=== PATIENT | male | born 1960 | race Caucasian/White ===

== ENCOUNTER 2024-06-24 06:40 | Outpatient (OUT) | payer OTHER, SELFPAY ==
[2024-06-24 07:04] LABS: Basophils Absolute Auto 0.1 10^3/uL (0.0-0.1); Eosinophils Absolute Auto 0.4 10^3/uL (0.0-0.7); Eosinophils Percent Auto 5.6 % (0.9-7.0); Hemoglobin 15.9 g/dL (14.0-18.0); Immature Granulocytes Abs Auto 0.03 10^3/uL (0.00-0.03); Immature Granulocytes Pct Auto 0.4 % (0.0-0.5); Lymphocytes Absolute Auto 1.6 10^3/uL (1.2-3.8); Mean Corpuscular HGB Conc 33.8 g/dL (29.9-35.2); Mean Corpuscular Hemoglobin 30.6 pg (25.9-34.0); Mean Corpuscular Volume 90.6 fL (80.0-94.0); Mean Platelet Volume 10.1 fL (9.5-13.5); Monocytes Absolute Auto 0.5 10^3/uL (0.3-0.8); Monocytes Percent Auto 7.4 % (1.7-12.0); Neutrophils Absolute Auto 4.2 10^3/uL (1.4-6.5); Neutrophils Percent Auto 62.6 % (43.0-75.0); Platelet Count 162 10^3/uL (150-450); Red Blood Count 5.19 10^6/uL (4.70-6.10); Red Cell Distribution Width 12.1 % (11.0-15.0); White Blood Count 6.7 10^3/uL (4.0-11.0)
[2024-06-24 07:14] LABS: Estimated Average Glucose 91 mg/dL; Glycohemoglobin A1C 4.8 % (4.5-6.2)
[2024-06-24 07:32] LABS: Alanine Aminotransferase 23 U/L (16-63); Albumin Globulin Ratio 1.2; Albumin Level 3.6 g/dL (3.4-5.0); Alkaline Phosphatase 105 U/L (46-116); Anion Gap 12.1; Aspartate Amino Transferase 14 U/L (15-37); BUN Creatinine Ratio 11.3; Bilirubin Total 0.6 mg/dL (0.2-1.0); Calcium 8.8 mg/dL (8.5-10.1); Carbon Dioxide 27.7 mmol/L (21.0-32.0); Chloride 105 mmol/L (98-107); Chol HDL Ratio 4.5; Cholesterol 180 mg/dL (<=200); Estimated GFR (African America >60 (>=60); Estimated GFR (Non-African Ame 54 (>=60); Free T3 2.77 pg/mL (2.18-3.98); Glucose 96 mg/dL (74-106); HDL Cholesterol 40 mg/dL (40-60); LDL Cholesterol Calculated 117.4 mg/dL; Potassium 3.8 mmol/L (3.5-5.1); Sodium 141 mmol/L (136-145); Thyroid Stimulating Hormone 1.291 uIU/mL (0.358-3.740); Total Protein 6.6 g/dL (6.4-8.2); Triglycerides 113 mg/dL (<=150); Uric Acid 7.3 mg/dL (3.5-7.2); VLDL CHOLESTEROL 22.6 mg/dL
[2024-06-24 09:57] LABS: Prostate Specific Antigen Scrn 1.11 ng/mL (<=4.00)
== END 2024-06-24 06:41 | disposition home or self-care (01) ==
LOC: LAB 06:47
PROVIDERS: PCP Family Medicine; Visit Provider Family Medicine
DX: E78.5 Hyperlipidemia, unspecified (principal); I10 Essential (primary) hypertension; K21.9 Gastro-esophageal reflux disease without esophagitis; M10.9 Gout, unspecified; N40.0 Benign prostatic hyperplasia without lower urinary tract symptoms; Z12.5 Encounter for screening for malignant neoplasm of prostate; R53.83 Other fatigue; R73.09 Other abnormal glucose
CPT/HCPCS: 36415; 80053; 80061; 83036; 84436; 84443; 84481; 84550; 85025; G0103

== ENCOUNTER 2024-07-01 06:42 | Outpatient (OUT) | payer OTHER, MEDICARE, SELFPAY ==
--- OUTSIDE RECORDS SUMMARY | 2024-07-01 06:45 | XMS_ITS | CCD ---
Author Organization [facility] Care Team Providers Care Fabric Worker Supervisor Name Role Phone Landen Malik Admitting Unavailable Landen Malik Attending Unavailable Landen Malik Referring Unavailable Rufus Erazo~[id number] UNKNOWN Primary Care Unavailable DR RUFUS ERAZO Admitting Unavailable DR RUFUS ERAZO Attending Unavailable DR RUFUS ERAZO Consulting Unavailable Allergies Allergy Classification Reported Allergen(s) Allergy Type Date of Onset Reaction(s) Facility (1 source) No Known Medication Allergies; Translations: [No Known Medication Allergies] Propensity to adverse reactions (disorder) [facility] Repository Problems Problem Classification Problem Date Documented Da te Episodic/Chronic Other screening for suspected conditions (not mental disorders or infectious disease) (1 source) Encounter for screening for malignant neoplasm of prostate; Translations: [ENC SCREEN MALIG NEOPLASM PROSTATE] Onset: 08-16-2021 Episodic Results Test Name Value Interpretation Reference Range Facility INSULINon 08-11-2021 Insulin 7.9 uIU/mL Normal 2.6-24.9 [facility] Comment on above: Performed By: #### U AMIC #### [facility] [address] [address] [address] Dina Prescott CBC AUTO DIFFon 08-10-2021 BASO # 0.0 103/ul Normal 0.0-0.1 [facility] Comment on above: Performed By: #### C BC #### [facility] [address] [address] [address] Dina Prescott Basophils/100 WBC (Bld) 0.4 % Normal 0.2-2.0 [facility] Comment on above: Performed By: #### C BC #### [facility] [address] [address] [address] Dina Prescott EO # 0.3 103/ul Normal 0.0-0.7 [facility] Comment on above: Performed By: #### C BC #### [facility] [address] [place] [address] Dr. Dina Prescott Eosinophils/100 WBC (Bld) 2.8 % Normal 0.9-7.0 [facility] Comment on above: Performed By: #### C BC #### [facility] [address] [place] [address] Dr. Dina Prescott Erythrocyte distribution width (RBC) [Ratio] 12.1 % Normal 11.0-15.0 [facility] Comment on above: Performed By: #### C BC #### [facility] [address] [place] [address] Dr. Dina Prescott Hematocrit (Bld) [Volume fraction] 49.7 % Normal 42.0-54.0 [facility] Comment on above: Performed By: #### C BC #### [facility] [address] [place] [address] Dr. Dina Prescott Hemoglobin (Bld) [Mass/Vol] 16.8 g/dL Normal 14.0-18.0 [facility] Comment on above: Performed By: #### C BC #### [facility] [address] [place] [address] Dr. Dina Prescott IG # 0.04 10e3/ul Critically high 0.00-0.03 [facility] Comment on above: Performed By: #### C BC #### [facility] [address] [place] [address] Dr. Dina Prescott IG % 0.4 % Normal 0.0-0.5 [facility] Comment on above: Performed By: #### C BC #### [facility] [address] [place] [address] Dr. Dina Prescott LYMPH # 1.8 103/ul Normal 1.2-3.8 [facility] Comment on above: Performed By: #### C BC #### [facility] [address] [place] [address] Dr. Dina Prescott Lymphocytes/100 WBC (Bld) 20.1 % Critically low 20.5-60.0 [facility] Comment on above: Performed By: #### C BC #### [facility] [address] [place] [address] Dr. Dina Prescott MANUAL DIFF REQ NO Normal [facility] Comment on above: Performed By: #### C BC #### [facility] [address] [place] [address] Dr. Dina Prescott MCH (RBC) [Entitic mass] 30.4 pg Normal 25.9-34.0 [facility] Comment on above: Performed By: #### C BC #### [facility] [address] [place] [address] Dr. Dina Prescott MCHC (RBC) [Mass/Vol] 33.8 g/dL Normal 29.9-35.2 [facility] Comment on above: Performed By: #### C BC #### [facility] [address] [place] [address] Dr. Dina Prescott MCV (RBC) [Entitic vol] 89.9 fL Normal 80.0-94.0 [facility] Comment on above: Performed By: #### C BC #### [facility] [address] [place] [address] Dr. Dian Prescott MONO # 0.5 103/ul Normal 0.3-0.8 [facility] Comment on above: Performed By: #### C BC #### [facility] [address] [place] [address] Dr. Dina Prescott Monocytes/100 WBC (Bld) 5.9 % Normal 1.7-12.0 [facility] Comment on above: Performed By: #### C BC #### [facility] [address] [place] [address] Dr. Dina Prescott NEUT # 6.4 103/ul Normal 1.4-6.5 [facility] Comment on above: Performed By: #### C BC #### [facility] [address] [place] [address] Dr. Dina Prescott Neutrophils/100 WBC (Bld) 70.4 % Normal 43.0-75.0 [facility] Comment on above: Performed By: #### C BC #### [facility] [address] [place] [address] Dr. Dina Prescott Platelet mean volume (Bld) [Entitic vol] 10.0 fL Normal 9.5-13.5 [facility] Comment on above: Performed By: #### C BC #### [facility] [address] [place] [address] Dr. Dina Prescott PLT 225 103/ul Normal 150-450 [facility] Comment on above: Performed By: #### C BC #### [facility] [address] [place] [address] Dr. Dina Prescott RBC 5.53 106/ul Normal 4.70-6.10 [facility] Comment on above: Performed By: #### C BC #### [facility] [address] [place] [address] Dr. Dina Prescott WBC 9.1 103/ul Normal 4.0-11.0 [facility] Comment on above: Performed By: #### C BC #### [facility] [address] [place] [address] Dr. Dina Prescott CULTURE URINEon 08-10-2021 CULTURE URINE Culture Observations : NO GROWTH. Normal [facility] Comment on above: Performed By: #### U RCX #### [facility] [address] [place] [address] Dr. Dina Prescott FREE THYROXINE INDEX T7on FTI 2.35 Normal [facility] Comment on above: Performed By: #### T SH, T7, CMP, URIC, LIPID #### [facility] [address] [place] [address] Dr. Dina Prescott T3U 35.0 % Normal 23.5-40.5 [facility] Comment on above: Performed By: #### T SH, T7, CMP, URIC, LIPID #### [facility] [address] [place] [address] Dr. Dina Prescott T4 [Mass/Vol] 6.70 ug/dL Normal 5.53-11.00 [facility] Comment on above: Performed By: #### T SH, T7, CMP, URIC, LIPID #### [facility] [address] [address] [address] Dina Prescott GLYCOHEMOGLOBIN A1Con 2020 ADA RECOMMENDATION ADA THERAPEUTIC TARG ET 6.0 - 7.0 ACTION SUGGESTED > 7.0 Normal [facility] Comment on above: Performed By: #### A 1C #### [facility] [address] [address] [address] Dina Prescott Glucose [Mass/Vol] 88 mg/dL Normal 74-106 [facility] Comment on above: Performed By: #### A 1C #### [facility] [address] [place] [address] Dr. Dina Prescott Performed By: #### T SH, T7, CMP, URIC, LIPID #### [facility] [address] [place] [address] Dr. Dina Prescott HbA1c (Bld) [Mass fraction] 4.7 % Normal <=6.0 [facility] Comment on above: Performed By: #### A 1C #### [facility] [address] [place] [address] Dr. Dina Prescott LIPID PROFILEon 08-10-2021 CHOL-HDL RATIO NORM SEE BELOW Normal [facility] Comment on above: Result Comment: 3.3 - 4.4 LOW RISK 4.4 - 7.1 AVERAGE RISK 7.1 - 11.0 MODERATE RISK >11.0 HIGH RISK Performed By: #### T SH, T7, CMP, URIC, LIPID #### [facility] [address] [address] [address] Dina Prescott Cholesterol [Mass/Vol] 196 mg/dL Normal <=200 [facility] Comment on above: Performed By: #### T SH, T7, CMP, URIC, LIPID #### [facility] [address] [place] [address] Dr. Dina Prescott Cholesterol in HDL [Mass/Vol] 42 mg/dL Normal [facility] Comment on above: Performed By: #### T SH, T7, CMP, URIC, LIPID #### [facility] [address] [place] [address] Dr. Dina Prescott Cholesterol in LDL [Mass/Vol] 130.6 mg/dL Normal [facility] Comment on above: Performed By: #### T SH, T7, CMP, URIC, LIPID #### [facility] [address] [place] [address] Dr. Dina Prescott Cholesterol.total/Ch olesterol in HDL [Mass ratio] 4.7 {ratio} Normal [facility] Comment on above: Performed By: #### T SH, T7, CMP, URIC, LIPID #### [facility] [address] [address] [address] Dina Prescott HDL NORMAL > or = 60 mg/dl - LO W CARDIOVASCULAR RISK <40 mg/dl - HIGH CARDIOVASCULAR RISK Normal [facility] Comment on above: Performed By: #### T SH, T7, CMP, URIC, LIPID #### [facility] [address] [place] [address] Dr. Dina Prescott LDL CALC NORMAL SEE BELOW Normal [facility] Comment on above: Result Comment: <100 mg/dl OPTIMAL 100 - 129 mg/dl NEAR OR ABOVE OPTIMAL 130 - 159 mg/dl BORDERLINE HIGH 160 - 189 mg/dl HIGH >190 mg/dl VERY HIGH Performed By: #### T SH, T7, CMP, URIC, LIPID #### [facility] [address] [place] [address] Dr. Dina Prescott Triglyceride [Mass/Vol] 117 mg/dL Normal <=150 [facility] Comment on above: Performed By: #### T SH, T7, CMP, URIC, LIPID #### [facility] [address] [place] [address] Dr. Dina Prescott VLDL CALC 23.4 mg/dL Normal [facility] Comment on above: Performed By: #### T SH, T7, CMP, URIC, LIPID #### [facility] [address] [address] [address] Dina Prescott PROF 14(COMP METB)on 021 Albumin [Mass/Vol] 4.1 g/dL Normal 3.5-5.0 [facility] Comment on above: Performed By: #### T SH, T7, CMP, URIC, LIPID #### [facility] [address] [place] [address] Dr. Dina Prescott Albumin/Globulin [Mass ratio] 1.2 {ratio} Normal [facility] Comment on above: Performed By: #### T SH, T7, CMP, URIC, LIPID #### [facility] [address] [place] [address] Dr. Dina Prescott ALP [Catalytic activity/Vol] 104 U/L Normal 38-126 [facility] Comment on above: Performed By: #### T SH, T7, CMP, URIC, LIPID #### [facility] [address] [place] [address] Dr. Dina Prescott ALT [Catalytic activity/Vol] 21 U/L Normal 21-72 [facility] Comment on above: Performed By: #### T SH, T7, CMP, URIC, LIPID #### [facility] [address] [place] [address] Dr. Dina Prescott Anion gap [Moles/Vol] 5.8 mmol/L Normal [facility] Comment on above: Performed By: #### T SH, T7, CMP, URIC, LIPID #### [facility] [address] [place] [address] Dr. Dian Prescott AST [Catalytic activity/Vol] 14 U/L Critically low 17-59 [facility] Comment on above: Performed By: #### T SH, T7, CMP, URIC, LIPID #### [facility] [address] [place] [address] Dr. Dina Prescott Bilirubin [Mass/Vol] 0.9 mg/dL Normal 0.2-1.3 [facility] Comment on above: Performed By: #### T SH, T7, CMP, URIC, LIPID #### [facility] [address] [place] [address] Dr. Dina Prescott Calcium [Mass/Vol] 9.4 mg/dL Normal 8.4-10.2 [facility] Comment on above: Performed By: #### T SH, T7, CMP, URIC, LIPID #### [facility] [address] [place] [address] Dr. Dina Prescott Chloride [Moles/Vol] 104 mmol/L Normal 98-107 [facility] Comment on above: Performed By: #### T SH, T7, CMP, URIC, LIPID #### [facility] [address] [address] [address] Dina Prescott CO2 [Moles/Vol] 32.6 mmol/L Critically high 22.0-30.0 [facility] Comment on above: Performed By: #### T SH, T7, CMP, URIC, LIPID #### [facility] [address] [place] [address] Dr. Dina Prescott Creatinine [Mass/Vol] 1.27 mg/dL Critically high 0.66-1.25 [facility] Comment on above: Performed By: #### T SH, T7, CMP, URIC, LIPID #### [facility] [address] [place] [address] Dr. Dina Prescott EGFR-AF SWEDISH >60 Normal >=60 [facility] Comment on above: Performed By: #### T SH, T7, CMP, URIC, LIPID #### [facility] [address] [place] [address] Dr. Dina Prescott EGFR-NON AF SWEDISH 57 mL/min/1.73m2 Critically low >=60 [facility] Comment on above: Performed By: #### T SH, T7, CMP, URIC, LIPID #### [facility] [address] [place] [address] Dr. Dina Prescott Globulin (S) [Mass/Vol] 3.3 g/dL Normal [facility] Comment on above: Performed By: #### T SH, T7, CMP, URIC, LIPID #### [facility] [address] [place] [address] Dr. Dina Prescott Potassium [Moles/Vol] 4.4 mmol/L Normal 3.4-5.0 [facility] Comment on above: Performed By: #### T SH, T7, CMP, URIC, LIPID #### [facility] [address] [place] [address] Dr. Dina Prescott Protein [Mass/Vol] 7.4 g/dL Normal 6.1-8.2 [facility] Comment on above: Performed By: #### T SH, T7, CMP, URIC, LIPID #### [facility] [address] [place] [address] Dr. Dina Prescott Sodium [Moles/Vol] 138 mmol/L Normal 137-145 [facility] Comment on above: Performed By: #### T SH, T7, CMP, URIC, LIPID #### [facility] [address] [place] [address] Dr. Dina Prescott Urea nitrogen [Mass/Vol] 17.0 mg/dL Normal 9.0-20.0 [facility] Comment on above: Performed By: #### T SH, T7, CMP, URIC, LIPID #### [facility] [address] [place] [address] Dr. Dina Prescott Urea nitrogen/Creatinine [Mass ratio] 13.4 mg/mg Normal [facility] Comment on above: Performed By: #### T SH, T7, CMP, URIC, LIPID #### [facility] [address] [place] [address] Dr. Dina Prescott TSHon 08-10-2021 TSH 0.891 uIU/mL Normal 0.470-4.680 [facility] Comment on above: Performed By: #### T SH, T7, CMP, URIC, LIPID #### [facility] [address] [place] [address] Dr. Dina Prescott TSH RANGE SEE BELOW Normal [facility] Comment on above: Result Comment: <0.3 4 UIU/ml HYPERTHYROID 0.34-5.60 UIU/ml EUTHYROID >5.60 UIU/ml HYPOTHYROID Performed By: #### T SH, T7, CMP, URIC, LIPID #### [facility] [address] [place] [address] Dr. Dina Prescott UA RANDOM W/MICROSCOPICon BACTERIA NONE SEEN Normal NONE SEEN [facility] Comment on above: Performed By: #### U AMIC #### [facility] [address] [place] [address] Dr. Dina Prescott Bilirubin Ql (U) Negative Normal NEGATIVE [facility] Comment on above: Performed By: #### U AMIC #### [facility] [address] [address] [address] Dina Prescott CAST NONE SEEN Normal NONE SEEN [facility] Comment on above: Performed By: #### U AMIC #### [facility] [address] [address] [address] Dina Prescott Clarity (U) CLEAR Normal CLEAR [facility] Comment on above: Performed By: #### U AMIC #### [facility] [address] [address] [address] Dina Prescott Color (U) YELLOW Normal YELLOW [facility] Comment on above: Performed By: #### U AMIC #### [facility] [address] [place] [address] Dr. Dina Prescott Crystals LM Nom (Urine sed) NONE SEEN Normal NONE SEEN [facility] Comment on above: Performed By: #### U AMIC #### [facility] [address] [address] [address] Dina Prescott Epithelial cells LM Ql (Urine sed) RARE Normal NONE SEEN /RARE [facility] Comment on above: Performed By: #### U AMIC #### [facility] [address] [address] [address] Dina Prescott Glucose Ql (U) Negative Normal NEGATIVE [facility] Comment on above: Performed By: #### U AMIC #### [facility] [address] [address] [address] Dina Prescott Hemoglobin Ql (U) Negative Normal NEGATIVE [facility] Comment on above: Performed By: #### U AMIC #### [facility] [address] [address] [address] Dina Prescott Ketones Ql (U) Negative Normal NEGATIVE [facility] Comment on above: Performed By: #### U AMIC #### [facility] [address] [place] [address] Dr. Dina Prescott LEUKOCYTES Negative Normal NEGATIVE [facility] Comment on above: Performed By: #### U AMIC #### [facility] [address] [address] [address] Dina Prescott MUCOUS NONE SEEN Normal NONE SEEN [facility] Comment on above: Performed By: #### U AMIC #### [facility] [address] [address] [address] Dina Prescott Nitrite Ql (U) Negative Normal NEGATIVE [facility] Comment on above: Performed By: #### U AMIC #### [facility] [address] [address] [address] Dina Prescott pH (U) 7.0 [pH] Normal 5-9 [facility] Comment on above: Performed By: #### U AMIC #### [facility] [address] [place] [address] Dr. Dina Prescott RBC 0-2 Normal 0-2 [facility] Comment on above: Performed By: #### U AMIC #### [facility] [address] [place] [address] Dr. Dina Prescott SPEC GRAVITY 1.015 Normal 1.005-<=1.025 [facility] Comment on above: Performed By: #### U AMIC #### [facility] [address] [address] [address] Dina Prescott UA PROTEIN Negative Normal NEGATIVE/ TRACE [facility] Comment on above: Performed By: #### U AMIC #### [facility] [address] [place] [address] Dr. Dina Prescott Urobilinogen Qn (U) 0.2 {Peace'U}/dL Normal 0.2 - 1. 0 [facility] Comment on above: Performed By: #### U AMIC #### [facility] [address] [address] [address] Dina Prescott WBC 0-2 Abnormal NONE SEEN [facility] Comment on above: Performed By: #### U AMIC #### [facility] [address] [place] [address] Dr. Dina Prescott URIC ACID SERUMon 08-10-2021 Urate [Mass/Vol] 7.2 mg/dL Normal 3.5-8.5 [facility] Comment on above: Performed By: #### T SH, T7, CMP, URIC, LIPID #### [facility] [address] [address] [address] Dina Prescott Coding Summary.on 11-29-2018 Coding Summary. CODING DATE: 11/29/2018 FINAL [facility] STATUS: Home (Routine DC) PAYOR: Medical [place] [facility] DESCRIPTION 5312 Level 2 Lower GI Procedures ADMIT DX: REASON FOR VISIT DX: R19.5 Other fecal abnormalities FINAL DX: PRINCIPAL: D12.2 Benign neoplasm of ascending colon SECONDARY: K57.30 Diverticulosis of large intestine without perforation or abscess without bleeding I10 Essential (primary) hypertension M10.9 Gout, unspecified Z80.0 Family history of malignant neoplasm of digestive organs PYMT PROC APC STAT DESCRIPTION DOCTOR NAME DATE 94813 5312 T Colonoscopy, flexible; Landen MALIK MD 11/26/2018 with removal of tumor(s), polyp(s), or other lesion(s) by snare technique [id number] Anesthesia for lower Avila Jr. Robi BENSON 11/26/2018 intestinal endoscopic procedures, endoscope introduced distal to duodenum; not otherwise specified NOTE: The code number assigned matches the documented diagnosis and / or procedure in the patient's chart. However, the narrative phrase printed from the coding software may appear abbreviated, or result in slightly different terminology. Revised Coded By: Buffy Mchugh Revised Date Saved: 11/29/2018 03:16 pm Normal [facility] Main OR PACU I Recordon 11-13 Main OR PACU I Record PACU Phase I Document Type FT Summary Primary Physician: Landen MALIK MD Finalized Date/Time: 11/27/18 17:41:57 Pt. Name: MARION FRAZIER/Sex: 1960 Male Med Rec #: [id number] Physician: Landen MALIK MD Financial #: [id number] Pt. Type: O Room/Bed: / Admit/Disch: 11/26/18 06:58:18 - 11/26/18 23:59:59 Institution: Case Times PACU I FT Pre-Care Text: Identifies barriers to communication and implements measures to provide psychological support Develops individualized plan of care, and ensures continuity of care Maintains patient's dignity and privacy, and maintains patient confidentiality Identifies and reports philosophical, cultural, and spiritual beliefs and values Identifies individual values and wishes concerning care Implements aseptic technique, and administers prescribed antibiotic therapy and immunizing agents as ordered Evaluates postoperative tissue perfusion Implements thermoregulation measures, and monitors body temperature Evaluates postoperative respiratory status Evaluates postoperative cardiac status Evaluates postoperative neurological status Assesses pain control, collaborated in initiating patient-controlled analgesia and implements alternative methods of pain control Verifies allergies, administers prescribed medications and solutions, evaluates response to medications Entry 1 In PACU I 11/26/18 08:18:00 Discharge from PACU 11/26/18 08:48:00 I Outcomes Met? Yes Last Modified By: Rebeka Guerrero RN 11/27/18 17:41:24 Post-Care Text: The patient demonstrates knowledge of the expected response to the operative or invasive procedure The patient's care is consistent with the individualized perioperative plan of care The patient's right to privacy is maintained The patient's value system, lifestyle, ethnicity, and culture are considered, respected, and incorporated into the perioperative plan of care The patient participates in decisions affecting his or her perioperative plan of care The patient is free from signs and symptoms of infection The patient has wound/tissue perfusion consistent with or improved from baseline levels established preoperatively The patient is at or returning to normothermia at the conclusion of the immediate postoperative period The patient's respiratory function is consistent with or improved from baseline levels established preoperatively The patient's cardiovascular status is consistent with or improved from baseline levels established preoperatively The patient's cardiovascular status is consistent with or improved from baseline levels established preoperatively The patient demonstrates and/or reports adequate pain control throughout the perioperative period The patient received appropriate medication(s), safely administered during the perioperative period Acuity Level PACU I FT Entry 1 Start Time 11/26/18 08:18:00 Stop Time 11/26/18 08:48:00 Acuity Level Acuity Level I Last Modified By: Rebeka Guerrero RN 11/26/18 09:00:26 General Comments: [id number] Shyla-op Doc marcy. PREETHI Arshad Finalized By: Rebeka Guerrero RN Document Signatures Signed By: Rebeka Guerrero RN 11/26/18 09:00 Rebeka Guerrero RN 11/26/18 13:04 Yolanda ORO, Rebeka 11/27/18 17:41 Yolanda ORO, Rebeka 11/27/18 17:41 [facility] History and Physicalon 11-26 History and Physical Patient: MARION FRAZIER Age: 58 years Sex: Male : 1960 Associated Diagnoses: None Author: Landen MALIK MD Subjective no changes to H & P. [facility] Comment on above: Result Comment: Elec tronically Signed By: Landen MALIK MD\.br\Date and Time Signed: 11/26/18 07:27 EST Inpatient Patient Summaryon 11-26-[address] [facility] Clinical Discharge Instructions PERSON INFORMATION Name: MARION FRAZIER PHYSICIANS Admitting Physician: Landen MALIK MD Attending Physician: Landen MALIK MD PCP: Rufus Erazo MD Discharge Diagnosis: Colon polyp; Diverticulosis of colon Comment: PATIENT EDUCATION INFORMATION Instructions: Medication Leaflets: Follow up: With: Address: When: Landen MALIK [address] [place] [phone] Business ([id number] Within 7 to 10 days Comments: In the [place] office MEDICATION LIST Comment: [facility] Main OR Intraoperative Recor don 11-26-2018 Main OR Intraoperative Record IntraOp Document Type FT Summary Primary Physician: Landen MALIK MD Finalized Date/Time: 11/26/18 11:53:55 Pt. Name: MARION FRAZIER /Sex: 1960 Male Med Rec #: [id number] Physician: Landen MALIK MD Financial #: [id number] Pt. Type: O Room/Bed: / Admit/Disch: 11/26/18 06:58:18 - Institution: Case Times FT Entry 1 Patient Times In Room 11/26/18 07:50:00 Out Room 11/26/18 08:17:00 Procedure Times Start 11/26/18 07:54:00 Stop 11/26/18 08:14:00 Anesthesia Times Start 11/26/18 07:50:00 Stop 11/26/18 08:17:00 Time at [facility] 11/26/18 08:07:00 Last Modified By: Sienna Knight CST 11/26/18 08:18:38 General Comments: 11/26/18 Chart opened to review and send charges Harvey Knight C APPLICATION DEVELOPER Case Attendance FT Entry 1 Entry 2 Entry 3 Case Attendee Robi Avila Jr., DO, MD, Landen Wyman RN, Rae Gabriel Role Performed Anesthesiologist of Surgeon - Primary Machine Operators - Primary Record Time In 11/26/18 07:50:00 11/26/18 07:50:00 11/26/18 07:50:00 Time Out 11/26/18 08:17:00 11/26/18 08:17:00 11/26/18 08:17:00 Procedure COLONOSCOPY(.) COLONOSCOPY(.) COLONOSCOPY(.) Comments BOLIVAR REED, MEDICAL STUDENT, ALSO IN ATTENDANCE Last Modified By: Garo ORO, Rae Wyman RN, Rae Wyman RN, Rae Gabriel 11/26/18 08:19:01 11/26/18 08:19:01 11/26/18 08:19:01 Entry 4 Case Attendee Rachel LIANG, Mary Abarca Role Performed Scrub - Primary Time In 11/26/18 07:50:00 Time Out 11/26/18 08:17:00 Procedure COLONOSCOPY(.) Comments Last Modified By: Rae Wyman RN 11/26/18 08:19:01 Perioperative Protocols FT Pre-Care Text: Implements protective measures prior to operative or invasive procedure, confirms identity before the operative or invasive procedure, verifies operative procedure, surgical site, and laterality Entry 1 Procedure(s) COLONOSCOPY(.) Patient Identity Birthday, ID Band Verified (select at Check, Patient least 2): Participation Consents / H and P Anesthesia Consent, Operative Site N/A Verified HandP, Surgery/Procedure Marking Verified Consent Surgical Site Yes Laterality Verified n/a Verified Procedure Verified Yes Correct Patient Yes Position Verified Availability Equipment, Medication Prep Dry n/a Verified (If Applicable) PreOp Antibiotic No Time Out Robi Avila Jr., DO, NILL MD, Garo Camarena RN, Rachel Tucker CST, Mary Abarca Time Out Complete 11/26/18 07:52:00 Outcomes Met? Yes Last Modified By: Rae Wyman RN 11/26/18 07:55:58 Post-Care Text: The patient is free from signs and symptoms of injury caused by extraneous objects Allergy Information FT Pre-Care Text: Verifies allergies Entry 1 Allergies Reviewed? Yes Allergies Reviewed Self/Patient With Outcomes Met? Yes Last Modified By: Rae Wyman RN 11/26/18 07:56:27 Post-Care Text: The patient received appropriate medication(s) safely administered during the perioperative period Surgical Procedures FT Entry 1 Procedure Description Procedure COLONOSCOPY Modifiers . Surgeon Description COLONOSCOPY Primary Procedure Yes Primary Surgeon Landen MALIK MD 11/26/18 07:54:00 Stop 11/26/18 08:14:00 Anesthesia Type General Surgical Service General Wound Class 2 - Clean-Contaminated Last Modified By: Rae Wyman RN 11/26/18 08:19:01 General Case Data FT Pre-Care Text: Classifies surgical wound, implements aseptic technique, initiates traffic control Entry 1 Case Information OR ENDO 2 FT Case Level Level 2 Wound Class 2 - Clean-Contaminated Specialty General ASA Class 3 Preop Diagnosis OCCULT BLOOD IN STOOL Postop Same As Preop No Postop Diagnosis SIGMOID DIVERTICULOSIS, Outcomes Met? Yes ASCENDING COLON POLYP Last Modified By: Rae Wyman RN 11/26/18 08:19:21 Post-Care Text: The patient is free from signs and symptoms of infection Skin Assessment (Pre Procedure) FT Pre-Care Text: Implements protective measures to prevent skin/ tissue injury due to thermal or mechanical sources Evaluates for signs and symptoms of physical injury to skin and tissue Entry 1 Skin Integrity Unable to Visualize, Skin Abnormality No Intact, [place], Warm, and Dry Outcomes Met? Yes Last Modified By: Rae Wyman RN 11/26/18 07:57:27 Post-Care Text: The patient is free from signs and symptoms of injury caused by extraneous objects General Comments: UNABLE TO FULLY ASSESS SKIN INTEGRITY DUE TO CLOTHING. VISIBLE SKIN INTACT, PINK, WARM AND DRY. PREETHI PEGUERO Patient Positioning FT Pre-Care Text: Identifies physical alterations that require additional precautions for procedure-specific positioning, verifies presence of prosthetics or corrective devices, positions the patient, evaluates the patient for signs and symptoms of injury as a result of positioning Entry 1 Procedure COLONOSCOPY(.) Body Position Lateral, right side up Feet Uncrossed? Yes Left Arm Position Resting at Side Right Arm Position Resting at Side Left Leg Position Extended Right Leg Position Extended Positioning Device Pillow Under Head Large Press Points Checked Yes By Rae Wyman RN, Barrett Jr. DO, Clyde G. Outcomes Met? Yes Last Modified By: Rae Wyman RN 11/26/18 07:59:00 Post-Care Text: The patient is free from signs and symptoms of injury related to positioning Patient Care Devices FT Pre-Care Text: Implements protective measures to prevent skin/ tissue injury due to thermal or mechanical sources Entry 1 Entry 2 Entry 3 Equipment Type ENDOSCOPY VIDEO MONITOR CHARGE SURGERY CAUTERY ERBE UNIT [F] SYSTEM[F] [F] Equipment Number ENDO 2 Equipment Setting Outcomes Met? Yes Yes Yes Last Modified By: Rae Wyman RN, RN, Rae Florence RN 11/26/18 07:59:20 11/26/18 07:59:20 11/26/18 08:34:25 Post-Care Text: The patient is free from signs and symptoms of injury caused by extraneous objects Transport To OR FT Pre-Care Text: Transports according to individual needs. Evaluates for signs and symptoms of skin and tissue injury as a result of transfer or transport Entry 1 Via Cart By Rae Wyman RN Safety Precautions Side Rails Up Outcomes Met? Yes Last Modified By: Rae Wyman RN 11/26/18 07:59:28 Post-Care Text: The patient is free from signs and symptoms of injury related to transfer/transport Cautery FT Pre-Care Text: Implements protective measures to prevent injury due to electrical sources, and evaluates for signs and symptoms of electrical injury Entry 1 ESU Identification ESU Type CAUTERY ERBE UNIT [F] ESU Settings ESU Grounding Pad Site Right Thigh Hair Removal Pad No Site Pre Pad Site Clear and Intact Post Pad Site Clear and Intact Condition Condition Grounding Pad Rae Wyman RN Placed By Outcomes Met? Yes Last Modified By: Rae Wyman RN 11/26/18 08:35:01 Post-Care Text: The patient if free from signs and symptoms of electrical injury Departure From OR FT Pre-Care Text: Transports according to individual needs. Evaluates for signs and symptoms of skin and tissue injury as a result of transfer or transport. Entry 1 Via Cart Safety Precautions Side Rails Up PostOp Destination PACU Transported By Rae Wyman RN Patient Status Stable Skin. Condition Intact, [place], Warm, and Dry Airway Maintenance Oxygen in Use? No Outcomes Met? Yes Last Modified By: Rae Wyman RN 11/26/18 07:59:55 Post-Care Text: The patient is free from signs and symptoms of injury related to transfer/transport General Comments: REPORT TO PACU NURSE. PREETHI PEGUEROpre billing specialist Administration FT Pre-Care Text: Verifies allergies, administers prescribed medications and solutions, administers prescribed antibiotic therapy and immunizing agents as ordered, evaluates response to medications Administers prescribed medications and solutions Entry 1 Route of Admin Field Outcomes Met? Yes Last Modified By: Rae Wyman RN 11/26/18 08:00:21 Post-Care Text: The patient received appropriate medication(s) safely administered during the perioperative period For [facility] please see scanned medication reconcilliation form for medications used at the field during the procedure. Cultures and Specimens FT Pre-Care Text: Manages specimen handling and disposition Manages culture specimen collection Entry 1 Cultures Ordered No Specimens Ordered Yes Specimen Disposition Designated OR Area Frozen Section Times Outcomes Met? Yes Last Modified By: Rae Wyman RN 11/26/18 08:11:36 Post-Care Text: The patient is free from signs and symptoms of injury caused by extraneous objects The patient is free from signs and symptoms of infection General Comments: specimen = ascending colon polyp Case Comments Finalized By: Sienna Knight CST Document Signatures Signed By: Rae Wyman RN 11/26/18 08:35 Rae Wyman RN 11/26/18 08:19 Sienna Knight CST 11/26/18 11:53 [facility] Main OR Preoperative Recordo n 11-26-2018 Main OR Preoperative Record Holding Area Document Type FT Summary Primary Physician: Landen MALIK MD Finalized Date/Time: 11/26/18 07:16:41 Pt. Name: MARION FRAZIER/Sex: 1960 Male Med Rec #: [id number] Physician: Landen MALIK MD Financial #: [id number] Pt. Type: O Room/Bed: / Admit/Disch: 11/26/18 06:58:18 - Institution: Case Times Holding FT Pre-Care Text: Verifies consent for planned procedure, identifies individual values and wishes concerning care, includes family members in perioperative teaching Secures patient's records' belongings, and valuables, maintains patient's dignity and privacy, and maintains patient confidentiality Entry 1 In Holding 11/26/18 07:14:00 Outcomes Met? Yes Last Modified By: Mely Paz RN 11/26/18 07:16:36 Post-Care Text: The patient participates in decisions affecting his or her perioperative plan of care The patient's right to privacy is maintained Surgery Checklist FT Entry 1 Patient Birthday, ID Band Procedure History and Physical, Identification: Check, Patient Verification: Surgical Consent, With Participation Patient NPO after Midnight: Yes Personal Items: Glasses Limitations: none Complaints of Pain: No Operative Site n/a Availability Equipment Marking: Verified: Does Patient Smoke No Patient states Yes Comment - Adult brother postop adult Supervision supervision available Case Cancelled in No Holding Area see comments below for reason Last Modified By: Mely Paz RN 11/26/18 07:16:28 Finalized By: Mely Paz RN Document Signatures Signed By: Mely Paz RN 11/26/18 07:16 [facility] Operative Reporton 11-26-201 9 Operative Report Date of Surgery: 11/26/2018 SURGEON: Landen Malik M.D. PREOPERATIVE DIAGNOSIS: Occult positive stools POSTOPERATIVE DIAGNOSIS: 5 mm. ascending colon polyp as well as sigmoid diverticulosis OPERATION: Colonoscopy to cecum with snare polypectomy with electrocautery for ascending colon polyp ANESTHESIA: Monitored anesthesia care ESTIMATED BLOOD LOSS: Less than 1 mL. INDICATIONS AND CONSENT: The patient is a 58 year old male recently found to have occult positive stool. The indications, risks, benefits and alternatives of proceeding with colonoscopy were explained extensively to the patient including the risk of bleeding, colon perforation or anesthetic complications. All of his questions were answered and informed consent was obtained. PROCEDURE: The patient was brought to the Operating Room and placed in the left lateral decubitus position. Monitored anesthesia care was provided. Rectal examination was performed which showed no masses or blood. The scope was inserted into the anal canal under direct visualization and was advanced, with the aid of abdominal compression, it was advanced to the cecum where cecal markings were clearly identified. Upon withdrawal of the scope the mucosal surfaces were carefully examined. There were no mass, lesions, no inflammatory changes. There was noted to be a 5 mm. sessile polyp within the ascending colon. This was removed with a snare and electrocautery with good hemostasis. There was also noted to be some mild sigmoid diverticulosis without inflammatory changes or scarring. The scope was retroflexed in the anal canal. There was noted to be no significant hemorrhoidal disease. The scope was then withdrawn. The patient tolerated the procedure well and was sent to the Recovery Room in good condition. Follow-up colonoscopy will be based on the pathology of the polyp. Luis Alberto Guillen Dictated: 11/26/2018 #[id number] Typed: 11/26/2018 #[id number] cc: Luis Alberto Fair M.D. [facility] Comment on above: Result Comment: Elec tronically Signed By: JD EISENBERG, Landen Minerbr\Date and Time Signed: 11/26/18 08:40 EST Patient Education - Texton 0 11-26-2018 Patient Education - Text [facility] Progress Note-Physicianon Protein mass conc Patient: MARION FRAZIER Age: 58 years Sex: Male : 1960 Associated Diagnoses: None Author: Robi Avila Jr., DO Postoperative Information Post Operative Note: Post Anesthesia Care Unit. Anesthetic utilized: General. Health Status Allergies: Allergic Reactions (Selected) No Known Medication Allergies Problem list: No problem items selected or recorded. Physical Examination Vital Signs 11/26/2018 08:30 EST Heart Rate Monitored 83 bpm Respiratory Rate Monitored 17.0 br/min Systolic Blood Pressure 114 mmHg Diastolic Blood Pressure 87 mmHg SpO2 97 % 11/26/2018 08:25 EST Heart Rate Monitored 85 bpm Respiratory Rate Monitored 20 br/min Systolic Blood Pressure 114 mmHg Diastolic Blood Pressure 84 mmHg SpO2 96 % (Modified) 11/26/2018 08:22 EST SpO2 92 % 11/26/2018 08:20 EST Heart Rate Monitored 93 bpm Respiratory Rate Monitored 22.0 br/min Systolic Blood Pressure 110 mmHg Diastolic Blood Pressure 83 mmHg SpO2 89 % 11/26/2018 08:19 EST Temperature Temporal Artery 36.2 DegC LOW Heart Rate Monitored 91 bpm Respiratory Rate Monitored 12.0 br/min Systolic Blood Pressure 119 mmHg Diastolic Blood Pressure 80 mmHg Blood Pressure Location Left arm SpO2 89 % Pain assessment: Controlled. General: Alert and oriented, No acute distress, No nausea. Adequate hydration.. Respiratory: Adequate air exchange.. Cardiovascular: stable. Neurologic: Normal sensory. Review / Management Condition: Stable. Assessment Anesthetic outcome No anesthetic complications noted. Plan Transfer/ Discharge: Condition stable. [facility] Comment on above: Result Comment: Elec tronically Signed By: Robi Avila Jr., DO\.br\Date and Time Signed: 11/26/18 08:39 EST Protein mass conc Patient: MARION FRAZIER Age: 58 years Sex: Male : 1960 Associated Diagnoses: None Author: Robi Avila Jr., DO Preoperative Information Time patient last ate or drank:=== (NPO since midnight) Anesthesia history: Patient History: No prior problems with anesthesia.. Re-eval prior to induction: Inital eval reviewed: No significant interval change, Surgical H&P documented and on chart. Surgical consent signed and on chart.. Anesthesia results Review of Systems Cardiovascular: Negative except as documented in history of present illness. Respiratory: Negative. Neurologic: Negative. Health Status Allergies: Allergic Reactions (Selected) No Known Medication Allergies, Allergies (1) Active Reaction No Known Medication Allergies None Documented Current medications: (Selected) Inpatient Medications Ordered Lactated Ringers IV Esperanza 1000 mL 1,000 mL: 1,000 mL, IV, 100 mL/hr, Routine, Start date 11/26/18 7:31:00 EST, 10 hour(s), Total volume (mL): 1,000 Sodium Chloride 0.9% IV Esperanza 1000 mL 1,000 mL: 1,000 mL, IV, 20 mL/hr, Routine, Start date 11/26/18 6:48:00 EST, 50 hour(s), Total volume (mL): 1,000 Documented Medications Documented Colcrys: 0.6 mg, Oral, BID, Refills(s) 0, Gout pain atenolol: 50 mg, Oral, Daily, Refills(s) 0, High blood pressure Histories Past Medical History: No active or resolved past medical history items have been selected or recorded. Family History: No family history items have been selected or recorded. Procedure history: No active procedure history items have been selected or recorded. Social History Social & Psychosocial Habits No Data Available . Physical Examination Measurements from flowsheet : Measurements 11/26/2018 06:45 EST Height/Length Measured 182.8 cm Body Mass Index Measured 28.23 kg/m2 Weight Measured 94.34 kg Airway: Mallampati classification: II (soft palate, fauces, uvula visible). Respiratory: Lungs are clear to auscultation. Cardiovascular: Regular rhythm. Review / Management Results review Plan [place] [employer]esthesi[employer] (ASA) physical status classification: Class III. Anesthetic Preoperative Plan Anesthesia: General. . Anesthetic plan, risks, benefits, and alternatives discussed with the patient and/or family. Patient verbalized understanding. Adverse reactions, complications, and alternatives discujssed. Consent signed and on chart.. [facility] Comment on above: Result Comment: Elec tronically Signed By: Robi Avila Jr., DO\.br\Date and Time Signed: 11/26/18 07:31 EST Encounters Encounter Date Encounter Type Care Provider Facility Start: 08-16-2021 Encounter for genera l adult medical examination without abnormal findings DR RUFUS ERAZO [facility] Start: 08-10-2021 End: 08-11-[address] RUFUS ERAZO Facility:[facility] Start: 08-10-2021 End: 08-11-2021 Encounter for general adult medical examination without abnormal findings DR RUFUS ERAZO Facility:[facility] Start: 11-26-2018 End: 11-27-2018 Patient encounter procedure Landen Malik Facility:[facility] Procedures Date Procedure Procedure Detail Performing Clinician Start: 08-10-[address] SUDEEP ERAZO Comment on above: Performed By: #### P [facility] #### [facility] [address] [place] [address] Dr. Dina Prescott Payers Date Payer Category Payer Unknown [id number] 1961 Private Health Insurance [id number] 1960 Unknown [id number] 1960 Unknown [id number] Summary Purpose Family History No Family History Records FoundNo Family History Records Found Advance Directives No Advanced Directives Records FoundNo Advanced Directives Records Found Additional Source Comments (unrecognized sect ion and content) No Status Records FoundNo Status Records Found INFORMATION SOURCE (unrecogn ized section and content) DATE CREATED AUTHOR 12/07/2018 [facility] DATE CREATED AUTHOR [facility]20[facility] FOR RECORDS PERTAINING TO PATIENTS WHO ARE OR HAVE BEEN ENROLLED IN A CHEMICAL DEPENDENCY/SUBSTANCEABUSE PROGRAM, SOME INFORMATION MAY BE OMITTED. This clinical summary was aggregated from multiple sources. Caution should be exercised in using it in the provision of clinical care. This summary normalizes information from multiple sources, and as a consequence, information in this document may materially change the coding, format and clinical context of patient data. In addition, data may be omitted in some cases. CLINICAL DECISIONS SHOULD BE BASED ON THE PRIMARY CLINICAL RECORDS. [facility] [employer] [facility]. provides no warranty or guarantee of the accuracy or completeness of information in this document.
[2024-07-01 09:07] LABS: Anion Gap 12.6; Calcium 8.2 mg/dL (8.5-10.1); Carbon Dioxide 25.1 mmol/L (21.0-32.0); Chloride 105 mmol/L (98-107); Estimated GFR (African America >60 (>=60); Estimated GFR (Non-African Ame 58 (>=60); Glucose 97 mg/dL (74-106); Potassium 3.7 mmol/L (3.5-5.1); Sodium 139 mmol/L (136-145)
== END 2024-07-01 06:43 | disposition home or self-care (01) ==
LOC: LAB 06:43
PROVIDERS: PCP Family Medicine; Visit Provider Family Medicine
DX: R94.4 Abnormal results of kidney function studies (principal)
CPT/HCPCS: 36415; 80048